=== PATIENT | male | born 1945 | race Caucasian/White ===

== ENCOUNTER 2016-03-03 07:42 | Outpatient (CLI) | payer MEDICARE, OTHER ==
[2016-03-03] MEDS ORDERED: GADOBUTROL 10 MMOL/10 ML VIAL IVP ONE (09:54)
== END 2016-03-03 07:43 | disposition home or self-care (01) ==
DX: Z01.812 Encounter for preprocedural laboratory examination (principal); H91.21 Sudden idiopathic hearing loss, right ear; H93.13 Tinnitus, bilateral
CPT/HCPCS: 36415; 70543; 82565; 84520; A9585

== ENCOUNTER 2016-03-04 19:59 | Inpatient (IN) | payer MEDICARE, OTHER ==
[2016-03-04] MEDS ORDERED: SODIUM CHLORIDE 0.9% 1,000 ML IV ONE ×2 (21:13→23:42)
[2016-03-04] MEDS ORDERED: HYDROmorphone 1 MG/ML SYRINGE IVP STA (21:13)
[2016-03-04] MEDS ORDERED: ONDANSETRON 4 MG/2 ML VIAL IVP STA (21:13)
[2016-03-04] MEDS ORDERED: ONDANSETRON 4 MG/2 ML VIAL ONE (21:15)
[2016-03-04] MEDS ORDERED: HYDROmorphone 1 MG/ML SYRINGE ONE (21:15)
[2016-03-04] MEDS ORDERED: IOPAMIDOL-300 100 ML VIAL IVP ONE (22:29)
[2016-03-05] MEDS ORDERED: ONDANSETRON 4 MG/2 ML VIAL IVP PRN (00:06)
[2016-03-05] MEDS ORDERED: SODIUM CHLORIDE FLUSH 0.9% 10 ML SYRINGE IVP PRN (00:06)
[2016-03-05] MEDS ORDERED: PROCHLORPERAZINE 10 MG/2 ML VIAL IVP PRN (00:06)
[2016-03-05] MEDS ORDERED: ACETAMINOPHEN 325 MG TABLET PO PRN (00:06)
[2016-03-05] MEDS ORDERED: PROMETHAZINE 25 MG/1 ML VIAL IM PRN (00:06)
[2016-03-05] MEDS ORDERED: HYDROmorphone 1 MG/ML SYRINGE ONE (00:11)
[2016-03-05] MEDS ORDERED: ONDANSETRON 4 MG/2 ML VIAL ONE (00:11)
[2016-03-05] MEDS: HYDROmorphone 1 MG/ML SYRINGE IVP PRN ×3 (00:18→11:22)
[2016-03-05] MEDS: SODIUM CHLORIDE 0.9% 1,000 ML IV SCH ×3 (06:38→13:27)
[2016-03-05] MEDS: SODIUM CHLORIDE FLUSH 0.9% 10 ML SYRINGE IVP SCH ×3 (06:43→20:01)
[2016-03-05] MEDS: POLYETHYLENE GLYCOL 3350 17 GM PACKET PO SCH (08:04)
[2016-03-05] MEDS: ENOXAPARIN 40 MG/0.4 ML SYRINGE SUBQ SCH (08:07)
[2016-03-05] MEDS ORDERED: CALCIUM GLUCONATE 2,000 MG in SODIUM CHLORIDE 0.9% 100ML 100 ML IV ONE ×2 (08:15→17:15)
[2016-03-05] MEDS: KETOROLAC 10 MG TABLET PO SCH ×2 (17:00→23:53)
[2016-03-05] MEDS ORDERED: DEXTROSE GEL 37.5 GM TUBE PO PRN (17:16)
[2016-03-05] MEDS ORDERED: GLUCAGON 1 MG/ML VIAL SUBQ PRN (17:16)
[2016-03-05] MEDS ORDERED: DEXTROSE 5% 1,000 ML IV PRN (17:16)
[2016-03-05] MEDS ORDERED: DEXTROSE 50% ABBOJECT 25 GM/50 ML SYRINGE IVP PRN (17:16)
[2016-03-05] MEDS: INSULIN REGULAR HUMAN 100 UNIT/1 ML 10 ML MDV SUBQ SCH (19:57)
[2016-03-05] MEDS: DEXTROSE 5%-0.45% NACL 1,000 ML IV SCH (20:00)
[2016-03-06] MEDS: INSULIN REGULAR HUMAN 100 UNIT/1 ML 10 ML MDV SUBQ SCH ×4 (00:03→17:39)
[2016-03-06] MEDS: KETOROLAC 10 MG TABLET PO SCH ×3 (06:17→17:43)
[2016-03-06] MEDS: SODIUM CHLORIDE FLUSH 0.9% 10 ML SYRINGE IVP SCH ×3 (06:18→21:12)
[2016-03-06] MEDS: DEXTROSE 5%-0.45% NACL 1,000 ML IV SCH ×4 (06:30→17:44)
[2016-03-06] MEDS ORDERED: CALCIUM GLUCONATE 2,000 MG in SODIUM CHLORIDE 0.9% 100ML 100 ML IV ONE ×2 (08:30→18:00)
[2016-03-06] MEDS: ENOXAPARIN 40 MG/0.4 ML SYRINGE SUBQ SCH (08:57)
[2016-03-06] MEDS: POLYETHYLENE GLYCOL 3350 17 GM PACKET PO SCH (08:57)
[2016-03-06] MEDS ORDERED: SODIUM PHOSPHATE 20 MMOL in SODIUM CHLORIDE 0.9% 250 ML IV ONE (10:30)
[2016-03-06] MEDS: CHOLECALCIFEROL 1,000 UNIT TABLET PO SCH (14:41)
[2016-03-06] MEDS: HYDROmorphone 1 MG/ML SYRINGE IVP PRN (15:42)
[2016-03-07] MEDS: INSULIN REGULAR HUMAN 100 UNIT/1 ML 10 ML MDV SUBQ SCH ×4 (00:03→18:34)
[2016-03-07] MEDS: KETOROLAC 10 MG TABLET PO SCH ×4 (00:04→19:04)
[2016-03-07] MEDS: HYDROmorphone 1 MG/ML SYRINGE IVP PRN (00:10)
[2016-03-07] MEDS: DEXTROSE 5%-0.45% NACL 1,000 ML IV SCH ×4 (01:48→21:35)
[2016-03-07] MEDS: SODIUM CHLORIDE FLUSH 0.9% 10 ML SYRINGE IVP SCH ×3 (04:37→21:36)
[2016-03-07] MEDS: ENOXAPARIN 40 MG/0.4 ML SYRINGE SUBQ SCH (11:26)
[2016-03-07] MEDS: POLYETHYLENE GLYCOL 3350 17 GM PACKET PO SCH (11:26)
[2016-03-07] MEDS: CHOLECALCIFEROL 1,000 UNIT TABLET PO SCH (11:50)
[2016-03-07] MEDS ORDERED: CALCIUM GLUCONATE 1,000 MG in SODIUM CHLORIDE 0.9% 50 ML IV ONE (13:29)
[2016-03-08] MEDS: KETOROLAC 10 MG TABLET PO SCH ×3 (00:12→14:07)
[2016-03-08] MEDS: INSULIN REGULAR HUMAN 100 UNIT/1 ML 10 ML MDV SUBQ SCH ×4 (00:16→19:12)
[2016-03-08] MEDS: DEXTROSE 5%-0.45% NACL 1,000 ML IV SCH ×3 (04:27→20:42)
[2016-03-08] MEDS: SODIUM CHLORIDE FLUSH 0.9% 10 ML SYRINGE IVP SCH ×3 (06:14→20:47)
[2016-03-08] MEDS ORDERED: CALCIUM GLUCONATE 1,000 MG in SODIUM CHLORIDE 0.9% 50 ML IV ONE (09:00)
[2016-03-08] MEDS ORDERED: CALCIUM GLUCONATE 1000 MG/10 ML VIAL IVP ONE (09:00)
[2016-03-08] MEDS: CHOLECALCIFEROL 1,000 UNIT TABLET PO SCH (09:15)
[2016-03-08] MEDS: ENOXAPARIN 40 MG/0.4 ML SYRINGE SUBQ SCH (10:58)
[2016-03-08] MEDS: POLYETHYLENE GLYCOL 3350 17 GM PACKET PO SCH (10:58)
[2016-03-08] MEDS ORDERED: NAPROXEN 250 MG TABLET PO PRN (20:38)
[2016-03-09] MEDS: INSULIN REGULAR HUMAN 100 UNIT/1 ML 10 ML MDV SUBQ SCH ×2 (00:47→05:52)
[2016-03-09] MEDS: SODIUM CHLORIDE FLUSH 0.9% 10 ML SYRINGE IVP SCH (05:53)
[2016-03-09] MEDS: ENOXAPARIN 40 MG/0.4 ML SYRINGE SUBQ SCH (08:39)
[2016-03-09] MEDS: CHOLECALCIFEROL 1,000 UNIT TABLET PO SCH (08:40)
== END 2016-03-09 15:10 | disposition home or self-care (01) | DRG 440 ==
DX: K85.30 Drug induced acute pancreatitis without necrosis or infection (principal); T38.0X5A Adverse effect of glucocorticoids and synthetic analogues, initial encounter; K85.90 Acute pancreatitis without necrosis or infection, unspecified; I10 Essential (primary) hypertension; I48.91 Unspecified atrial fibrillation; D72.829 Elevated white blood cell count, unspecified; I48.0 Paroxysmal atrial fibrillation; Z85.46 Personal history of malignant neoplasm of prostate; D18.03 Hemangioma of intra-abdominal structures; H91.91 Unspecified hearing loss, right ear; M85.80 Other specified disorders of bone density and structure, unspecified site; T66.XXXS Radiation sickness, unspecified, sequela; Z90.79 Acquired absence of other genital organ(s); Z92.21 Personal history of antineoplastic chemotherapy; F32.9 Major depressive disorder, single episode, unspecified; Z79.82 Long term (current) use of aspirin; Z79.899 Other long term (current) drug therapy; E83.51 Hypocalcemia; R71.8 Other abnormality of red blood cells

== ENCOUNTER 2016-12-25 08:12 | Emergency (ER) | payer MEDICARE, OTHER ==
--- NOTE | 2016-12-25 08:31 | ED Physician Documentation ---
PD HPI LOWER EXT INJURY - Stated complaint Stated Complaint: LEG PX - Chief complaint Chief Complaint: Ext Problem - History obtained from History obtained from: Patient - History of Present Illness PD HPI LOW EXT INJURY LOCATION: Left, Lower leg Type of injury: Blunt / blow Where injury occurred: Home Timing - onset: How many days ago (4) Timing - duration: Days (4) Timing - details: Abrupt onset, Still present Improved by: Rest Worsened by: Moving, Palpating Associated symptoms: Discolored. No: Weakness, Numbness, Tingling, Swelling Contributing factors: No: Anticoagulated Similar symptoms before: Has not had sx before Recently seen: Not recently seen - Additional information Additional information: 71-year-old male was using a weed Ivan in his yard when he was struck in the left calf with a golf ball size rock. He initially had some pain in the area he has been able to bear weight but has continued pain and occasional sharp pains. He is worried about a chip fracture. Review of Systems Constitutional: denies: Fever Eyes: denies: Decreased vision Ears: denies: Ear pain Nose: denies: Congestion Throat: denies: Sore throat Respiratory: denies: Cough GI: denies: Vomiting Musculoskeletal: reports: Extremity pain. denies: Neck pain, Back pain, Pain with weight bearing Neurologic: denies: Generalized weakness, Focal weakness, Numbness PD PAST MEDICAL HISTORY - Past Medical History Cardiovascular: Hypertension, Atrial fibrillation Respiratory: None Neuro: None Endocrine/Autoimmune: None GI: Pancreatitis, Other : Other HEENT: None, Chronic hearing loss Psych: Depression Musculoskeletal: None, Osteopenia Derm: None - Past Surgical History Past Surgical History: Yes Ortho: Other Cardiovascular: Angioplasty, Other - Present Medications Home Medications: Ambulatory Orders Medication Instructions Recorded Confirmed Alendronate [Fosamax] 70 mg PO Q7D 10/27/15 12/25/16 Aspirin [Adult Low Dose Aspirin EC] 81 mg PO DAILY 10/27/15 12/25/16 Multivitamin [Multivitamins] 1 each PO DAILY 10/27/15 12/25/16 - Allergies Allergies/Adverse Reactions: Allergies Allergy/AdvReac Type Severity Reaction Status Date / Time diltiazem HCl * Allergy Diaphoresis Verified 10/27/15 14:29 [From Cardizem] - Social History Does the pt smoke?: No Smoking Status: Never smoker PD ED PE NORMAL - Vitals Vital signs reviewed: Yes (hypertensive) - General General: Alert and oriented X 3, No acute distress, Well developed/nourished - HEENT HEENT: Atraumatic, PERRL - Respiratory Respiratory: No respiratory distress - Derm Derm: Normal color, Warm and dry, No rash - Extremities Extremities: No deformity, Other (There is a 1cm round bruise to the left anterior calf medial at the lower 1/3. ) - Neuro Neuro: No motor deficit, No sensory deficit Eye Opening: Spontaneous Motor: Obeys Commands Verbal: Oriented GCS Score: 15 - Psych Psych: Normal mood, Normal affect Results - Vitals Vitals: Vital Signs - 24 hr 12/25/16 12/25/16 08:17 08:27 Temperature 36.8 C 37.1 C Heart Rate 82 81 Respiratory 16 18 Rate Blood Pressure 148/101 H 151/90 H O2 Saturation 96 96 Oxygen O2 Source Room air - Rads (name of study) Left tib-fib Radiology: Prelim report reviewed (Impression: 1. No acute fracture or dislocation identified. 2. Mild soft tissue swelling, including possible swelling with calcification of the Achilles tendon that may reflect tendinopathy.), EMP read indepedently, See rad report PD MEDICAL DECISION MAKING - ED course Complexity details: reviewed results, re-evaluated patient, considered differential, d/w patient ED course: 71-year-old male with a left calf contusion has a specific area of pain and swelling as well as some blood tracking under the skin and no evidence of fracture on plain film. He is advised in the extended nature of healing over this area of the body. Departure - Departure Disposition: 01 Home, Self Care Clinical Impression: Contusion of left calf Qualifiers: Encounter type: initial encounter Qualified Code(s): S80.12XA - Contusion of left lower leg, initial encounter Condition: Stable Instructions: ED Contusion Lower Ext Follow-Up: FELIX LANDERS MD [Primary Care Provider] -
[2016-12-25 08:33] VITALS: BP 151/90
--- NOTE | 2016-12-25 09:09 | XRAY Preliminary Report ---
Exam: XR TIB/FIB LT IMPRESSION: 1. No acute fracture or dislocation identified. 2. Mild soft tissue swelling, including possible swelling with calcification at the Achilles tendon t hat may reflect a tendinopathy. [facility] SITE ID: [id number]
--- NOTE | 2016-12-25 09:12 | XRAY Report ---
EXAM: LEFT TIBIA/FIBULA RADIOGRAPHY EXAM DATE: 12/25/2016 08:28 AM. CLINICAL HISTORY: Direct contusion lower /, pain. COMPARISON: None. TECHNIQUE: 2 views. FINDINGS: Bones: No acute fracture or focal osseous destruction identified. Joints: Knee and ankle joints appear maintained with no dislocation. Soft Tissues: Mild soft tissue swelling. No radiopaque foreign body. IMPRESSION: 1. No acute fracture or dislocation identified. 2. Mild soft tissue swelling, including possible swelling with calcification at the Achilles tendon t hat may reflect a tendinopathy. [facility] Referring Provider Line: [phone] SITE ID: [id number]
== END 2016-12-25 09:26 | disposition home or self-care (01) ==
LOC: ED 08:12
DX: S80.12XA Contusion of left lower leg, initial encounter (principal); W20.8XXA Other cause of strike by thrown, projected or falling object, initial encounter; Y93.H9 Activity, other involving exterior property and land maintenance, building and construction; Y92.017 Garden or yard in single-family (private) house as the place of occurrence of the external cause; I10 Essential (primary) hypertension; I48.91 Unspecified atrial fibrillation; Z79.82 Long term (current) use of aspirin; Z86.39 Personal history of other endocrine, nutritional and metabolic disease
CPT/HCPCS: 99283

== ENCOUNTER 2018-02-15 17:50 | Emergency (ER) | payer MEDICARE, OTHER ==
--- NOTE | 2018-02-15 18:03 | ED Physician Documentation ---
PD HPI NVD - Stated complaint Stated Complaint: DIARRHEA/ABD PX - Chief complaint Chief Complaint: Abd Pain - History obtained from History obtained from: Patient - History of Present Illness Timing - onset: Other (About 4-5 days of watery liquidy diarrhea with stomach cramps but no hematochezia or fever. He has not traveled recently or been on antibiotic. No sick contacts.) Review of Systems Constitutional: denies: Fever, Chills, Fatigue Ears: reports: Reviewed and negative Cardiac: reports: Reviewed and negative Respiratory: reports: Reviewed and negative GI: reports: Diarrhea. denies: Abdominal Swelling, Nausea, Vomiting, Hematemesis, Bloody / black stool PD PAST MEDICAL HISTORY - Past Medical History Cardiovascular: Hypertension, Atrial fibrillation Respiratory: None Endocrine/Autoimmune: None GI: Pancreatitis, Other : Other HEENT: None, Chronic hearing loss Psych: Depression Musculoskeletal: None, Osteopenia Derm: None - Past Surgical History Past Surgical History: Yes Ortho: Other Cardiovascular: Angioplasty, Other - Present Medications Home Medications: Ambulatory Orders Medication Instructions Recorded Confirmed RX: Alendronate [Fosamax] 70 mg PO Q7D 10/27/15 12/25/16 RX: Aspirin [Adult Low Dose 81 mg PO DAILY 10/27/15 12/25/16 Aspirin EC] RX: Multivitamin [Multivitamins] 1 each PO DAILY 10/27/15 12/25/16 Diphenoxylate/Atropine [Lomotil] 1 - 2 each PO QID PRN #15 tablet 02/15/18 RX: Azithromycin 2 tab PO DAILY #4 tablet 02/15/18 - Allergies Allergies/Adverse Reactions: Allergies Allergy/AdvReac Type Severity Reaction Status Date / Time diltiazem HCl * Allergy Diaphoresis Verified 10/27/15 14:29 [From Cardizem] - Social History Does the pt smoke?: No Smoking Status: Never smoker Does the pt drink ETOH?: No Does the pt have substance abuse?: No - Immunizations Immunizations are current?: Yes PD ED PE NORMAL - Vitals Vital signs reviewed: Yes - General General: Alert and oriented X 3, No acute distress - Cardiac Cardiac: RRR, No murmur - Respiratory Respiratory: No respiratory distress, Clear bilaterally - Abdomen Abdomen: Normal bowel sounds, Soft, Non tender - Neuro Neuro: Alert and oriented X 3, Normal speech - Psych Psych: Normal mood, Normal affect Results - Vitals Vitals: Vital Signs - 24 hr 02/15/18 02/15/18 17:55 19:26 Temperature 36.6 C Heart Rate 76 70 Respiratory 16 17 Rate Blood Pressure 126/90 H 124/84 H O2 Saturation 99 98 Oxygen O2 Source Room air - Labs Labs: Microbiology 02/15/18 18:10 Campylobacter Antigen Assay - Final Stool Laboratory Tests 02/15/18 02/15/18 18:12 18:12 WBC 6.4 RBC 4.99 Hgb 16.0 Hct 47.8 MCV 95.8 H MCH 32.1 H MCHC 33.5 RDW 13.1 Plt Count 201 MPV 7.7 Neut # (Auto) 4.7 Lymph # (Auto) 0.7 L Hodgeman # (Auto) 0.8 Eos # (Auto) 0.1 Baso # (Auto) 0.1 Absolute Nucleated RBC 0.00 Nucleated RBC % 0.0 Sodium 139 Potassium 3.8 Chloride 102 Carbon Dioxide 29 Anion Gap 8.0 BUN 20 Creatinine 1.2 Estimated GFR (MDRD) 60 L Glucose 86 Calcium 9.4 Total Bilirubin 0.7 AST 24 ALT 22 Alkaline Phosphatase 52 Total Protein 7.0 Albumin 4.1 Globulin 2.9 Albumin/Globulin Ratio 1.4 Lipase 30 PD MEDICAL DECISION MAKING - ED course ED course: 72-year-old gentleman with 5 days of diarrhea. It was actually slightly bloody in the department telemetry he had not noticed that before. He was given Zithromax and Lomotil here. After discharge he became positive for Campylobacter and this was discussed with him by phone. Departure - Departure Disposition: 01 Home, Self Care Clinical Impression: Diarrhea Condition: Good Record reviewed to determine appropriate education?: Yes Instructions: ED Diarrhea Bacterial Prescriptions: RX: Azithromycin 2 tab PO DAILY #4 tablet Diphenoxylate/Atropine [Lomotil] 1 - 2 each PO QID PRN #15 tablet PRN Reason: Diarrhea Comments: If your stool culture grows anything we will contact you, for the most common pathogens the antibiotic should be effective. Return for new or worsening symptoms. Follow-up with your doctor in 3-4 days if not better. Your blood pressure was elevated today on check into the emergency department. This does not mean that you have hypertension, it is a common phenomenon to come to the emergency department and have elevated blood pressure. I recommend that you see your primary care physician within the week to have it rechecked when you are feeling better. Discharge Date/Time: 02/15/18 19:34
[2018-02-15 18:33] LABS: ALBUMIN 4.1 g/dL (3.2-5.5); ALBUMIN/GLOBULIN RATIO 1.4 (1.0-2.2); BILIRUBIN,TOTAL 0.7 mg/dL (0.2-1.0); CALCIUM 9.4 mg/dL (8.5-10.3); CREATININE 1.2 mg/dL (0.6-1.2)
[2018-02-15 18:36] LABS: BASOPHILS # (AUTO) 0.1 10^3/uL (0.0-0.1); BASOPHILS % (AUTO) 0.9 %; EOSINOPHILS # (AUTO) 0.1 10^3/uL (0.0-0.7); EOSINOPHILS % (AUTO) 2.1 %; LYMPHOCYTES # (AUTO) 0.7 10^3/uL (1.5-3.5); MEAN CORPUSCULAR HEMOGLOBIN 32.1 pg (27.0-31.0); MEAN CORPUSCULAR HGB CONC 33.5 g/dL (32.0-36.0); MEAN CORPUSCULAR VOLUME 95.8 fL (80.0-94.0); MEAN PLATELET VOLUME 7.7 fL (7.4-11.4); MONOCYTES # (AUTO) 0.8 10^3/uL (0.0-1.0); MONOCYTES % (AUTO) 12.7 %; NEUTROPHILS # (AUTO) 4.7 10^3/uL (1.5-6.6); NEUTROPHILS % (AUTO) 73.3 %; PLT - PLATELET COUNT 201 10^3/uL (130-450); RED BLOOD COUNT 4.99 10^6/uL (4.70-6.10); RED CELL DISTRIBUTION WIDTH 13.1 % (12.0-15.0); WHITE BLOOD COUNT 6.4 x10^3/uL (4.8-10.8)
[2018-02-15] MEDS ORDERED: DIPHENOX/ATROPINE 2.5/0.025 MG TABLET PO STA (19:10)
[2018-02-15] MEDS ORDERED: AZITHROMYCIN 250 MG TABLET PO STA (19:10)
[2018-02-15 19:27] VITALS: BP 124/84
== END 2018-02-15 19:34 | disposition home or self-care (01) ==
LOC: ED 17:50
DX: R19.7 Diarrhea, unspecified (principal); I10 Essential (primary) hypertension
CPT/HCPCS: 36415; 80053; 83690; 85025; 87045; 87046; 87493; 99283; A9270

== ENCOUNTER 2020-09-27 13:42 | Emergency (ER) | payer MEDICARE, OTHER ==
[2020-09-27 13:52] VITALS: BP 122/72
== END 2020-09-27 17:03 | disposition left against medical advice (07) ==
LOC: ED 13:42
DX: Z53.21 Procedure and treatment not carried out due to patient leaving prior to being seen by health care provider (principal)

== ENCOUNTER 2021-11-03 08:00 | Outpatient (CLI) | payer MEDICARE, OTHER ==
--- NOTE | 2021-11-03 13:26 | XRAY Report ---
PROCEDURE: Foot 3 View LT INDICATIONS: CONTUSION OF LEFT FOOT TECHNIQUE: 3 views of the foot were acquired. COMPARISON: None FINDINGS: Bones: Nondisplaced, comminuted fracture of the distal aspect of the first proximal phalanx. Longitud inal fracture plane extends into the distal articular surface. Bone alignment remains normal. There a re moderate degenerative changes including osseous remodeling and spurring at the first metatarsal-ph alangeal joint. No suspicious bony lesions. Soft tissues: No tibiotalar joint effusion. Soft tissue thickening in the expected location of the A chilles tendon with linear, serpiginous radiodensity, potentially an Achilles tendon repair or eviden ce of chronic fracture. No retained foreign bodies. IMPRESSION: 1. Acute, intra-articular fracture of the first proximal phalanx. 2. 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 3. Prior surgery versus chronic injury involving the Achilles tendon. Reviewed by: Ijeoma Moore MD on 11/03/2021 1:25 PM PDT Approved by: Ijeoma Moore MD on 11/03/2021 1:25 PM PDT Station ID: [id number]
== END 2021-11-03 23:59 | disposition home or self-care (01) ==
LOC: DI.N 08:00
PROVIDERS: ATTEND Emergency Medicine
DX: S92.425A Nondisplaced fracture of distal phalanx of left great toe, initial encounter for closed fracture (principal); M19.072 Primary osteoarthritis, left ankle and foot